=== PATIENT | female | born 1975 | race Caucasian/White ===

== ENCOUNTER 2019-09-28 07:17 | Outpatient (CLI) | payer BC ==
--- NOTE | 2019-09-28 10:27 | MRI ---
MRI arthrogram of the right hip INDICATION: History of right acetabular labral tear with right hip pain COMPARISON: Right hip arthrogram collar tailor images dated September 28, 2019. FINDINGS: As seen on the comparison radiographs are small marginal osteophytes involving the right ac etabulum and right femoral head. There is adequate joint capsular distention of the right hip. There is a near full-thickness tear involving the superior acetabular labrum extending from image 9 t hrough image 13 of series 7. There is some degenerative intrasubstance signal involving the posterior superior aspect of the acetabular labrum. Ligamentum teres is intact. There is suspected ar ea of focal full-thickness articular cartilage thinning involving the anterior superior right acetabulum with associated subchondral edema. There is mild tendinosis of the right gluteus minimus t endon without evidence of trochanteric bursitis. No iliopsoas bursitis is evident. The rectus femoris and hamstring origins are normal appearing. No enlarged lymph nodes are evident. Visualized i ntrapelvic contents demonstrate bilateral follicular cysts, the largest on the right measuring 2.7 cm. There is a small submucosal fibroid involving the anterior uterine body on image 12 of series 3 m easuring 1 cm. SI joints and symphysis pubis appear within normal limits. There is mild to moderate degenerative changes involving the left hip. No lymphadenopathy is grossly evident. IMPRESSION: 1. [id number] right hip osteoarthrosis with a near full-thickness tear involving the superior r ight acetabular labrum. 2. Mild tendinosis of the right gluteus minimus tendon without evidence of trochanteric bursitis. 3. Bilateral follicular ovarian cysts. 4. Small submucosal fibroid involving the anterior uterine body.
--- NOTE | 2019-09-28 12:03 | RAD ---
Arthrogram right hip HISTORY: Right hip pain. Labral tear. FINDINGS: After explaining the procedure and answering all questions, the anterior aspect of the righ t hip was prepped and draped in usual sterile fashion. Sterile technique, buffered local anesthesia, fluoroscopic guidance, and an anterior approach were used to carefully advance the tip of a 22-gauge spinal needle to the joint capsule at the level of the femoral neck. A total volume of 9 cc liquid mixture containing normal saline, iodinated contrast, and a small amoun t of epinephrine and gadolinium was then instilled into the joint capsule under fluoroscopic control. Needle was removed. Patient tolerated the procedure well and was transferred to MRI in good condition for further imaging. Fluoroscopy time 0.5 minutes. IMPRESSION: Technically successful fluoroscopic guided right hip arthrogram. MRI is pending.
== END 2019-09-28 07:18 | disposition home or self-care (01) ==
LOC: RAD 07:17
PROVIDERS: ATTEND Family Medicine Sports Medicine
DX: S73.191A Other sprain of right hip, initial encounter (principal); M25.551 Pain in right hip; M16.11 Unilateral primary osteoarthritis, right hip; N83.01 Follicular cyst of right ovary; M67.951 Unspecified disorder of synovium and tendon, right thigh; D25.0 Submucous leiomyoma of uterus
CPT/HCPCS: 27093

== ENCOUNTER 2021-12-31 10:34 | Day surgery (SDC) | payer BC ==
[2021-12-26 15:35] VITALS: BMI 43.8
[2021-12-31 11:28] LABS: #Basophils 0.1 thou/uL (0.0-0.2); #Eosinphils 0.5 thou/uL (0.0-0.7); #Lymphocytes 3.2 thou/uL (1.20-3.40); #Monocytes 0.6 thou/uL (0.11-0.59); %Basophils 0.6 % (0.0-1.0); %Lymphocytes 38.2 % (21.0-51.0); %Monocytes 7.2 % (0.0-10.0); Mean Corpuscular HGB CONC 33.8 g/dL (32.0-36.0); Mean Corpuscular Hemoglobin 30.3 pg (27.0-31.0); Mean Corpuscular Volume 89.8 fL (78.0-98.0); Mean Platelet Volume 6.9 fL (7.4-10.4); Platelet Count 261 thou/uL (130-400); RBC Distribution Width 12.7 % (11.5-14.5); Red Blood Cell (RBC) Count 4.94 mill/uL (4.20-5.40); White Blood Cell (WBC) Count 8.4 thou/uL (4.8-10.8)
[2021-12-31] MEDS ORDERED: EPINEPHrine 1 MG/ML AMP ONE (11:48)
[2021-12-31] MEDS ORDERED: Lidocaine 1% w/Epinephrine 1:100K 20 ML VIAL ONE (11:48)
[2021-12-31] MEDS ORDERED: Bupivacaine PF 0.5% 30 ML VIAL ONE (11:48)
[2021-12-31 11:50] LABS: Anion Gap 14 mmol/L (10-20); BUN (Urea Nitrogen) 12 mg/dL (7.0-18.7); Calc. Creatinine Clearance 194 mL/min (70-130); Calcium 9.7 mg/dL (7.8-10.44); Carbon Dioxide 23 mmol/L (22-29); Chloride 106 mmol/L (98-107); Glucose 84 mg/dL (70-105); Potassium 4.2 mmol/L (3.5-5.1); Sodium 139 mmol/L (136-145)
[2021-12-31] MEDS ORDERED: Midazolam HCl 2 mg/2 ml Vial ONE (12:01)
[2021-12-31] MEDS ORDERED: Fentanyl 100 MCG/2 ML VIAL ONE (12:01)
[2021-12-31] MEDS ORDERED: ceFAZolin (BATCH) 2 GM/100 ML BAG ONE (12:02)
[2021-12-31] MEDS ORDERED: SUGAMMADEX SODIUM 200 MG/2 ML VIAL ONE (12:26)
[2021-12-31] MEDS ORDERED: Ondansetron PF 4 MG/2 ML Vial ONE (12:57)
[2021-12-31] MEDS ORDERED: Rocuronium Bromide 10 MG/ML (10ML VIAL) ONE (12:57)
[2021-12-31] MEDS ORDERED: Dexamethasone 20 MG/5 ML VIAL ONE (12:57)
[2021-12-31] MEDS ORDERED: Bupivacaine HCl 0.5%/Epinephrine 1:200,000/PF 30 ml Vial ONE (12:57)
[2021-12-31] MEDS ORDERED: PROPOFOL 200 MG/20 ML VIAL ONE (12:57)
[2021-12-31] MEDS ORDERED: Lidocaine 1% PF 5 ML VIAL ONE (12:57)
[2021-12-31] MEDS ORDERED: Ketorolac Tromethamine 30 MG/ML VIAL ONE (13:53)
== END 2021-12-31 15:15 | disposition home or self-care (01) ==
LOC: SDC 10:34
PROVIDERS: ATTEND Orthopaedic Surgery Sports Medicine
PROC: 3E0T3BZ Introduction of Anesthetic Agent into Peripheral Nerves and Plexi, Percutaneous Approach (ICD-10-PCS; principal; 2021-12-31)
PROC: 0LS44ZZ Reposition Left Upper Arm Tendon, Percutaneous Endoscopic Approach (ICD-10-PCS; principal; 2021-12-31)
DX: M75.22 Bicipital tendinitis, left shoulder (principal); M75.42 Impingement syndrome of left shoulder; S43.432A Superior glenoid labrum lesion of left shoulder, initial encounter; M25.712 Osteophyte, left shoulder; Z79.890 Hormone replacement therapy; Z79.899 Other long term (current) drug therapy; Z96.612 Presence of left artificial shoulder joint; Z98.84 Bariatric surgery status
CPT/HCPCS: 80048; 85025; 93005; 93010; C1713; J0171; J0690; J1100; J1885; J2250; J2405; J2704; J3010; S0020